=== PATIENT | female | born 1980 | race Caucasian/White ===

== ENCOUNTER 2016-10-20 10:15 | Emergency (ER) | payer MEDICAID, OTHER ==
[~2016-10-20] VITALS: Ht 157.5 cm; Wt 93.2 kg
[2016-10-20 10:15] VITALS: BP 157/95
[2016-10-20] MEDS ORDERED: IBUP-1022 PO ×2 (10:29→10:59)
[2016-10-20] MEDS ORDERED: DICY10SO PO (10:29)
[2016-10-20] MEDS ORDERED: BUSP5TA PO (10:29)
[2016-10-20] MEDS ORDERED: TRAZ50TA11 PO (10:29)
[2016-10-20] MEDS ORDERED: LIPI10TA PO (10:29)
[2016-10-20] MEDS ORDERED: LEXA1TAB PO (10:29)
[2016-10-20] MEDS ORDERED: CLEO300C2 PO (10:59)
== END 2016-10-20 11:16 | disposition home or self-care (01) ==
LOC: M ED 10:15
DX: J02.9 Acute pharyngitis, unspecified (principal); K58.9 Irritable bowel syndrome, unspecified; Z87.891 Personal history of nicotine dependence; Z79.899 Other long term (current) drug therapy

== ENCOUNTER → 2017-10-10 | Outpatient (CLI) | payer OTHER | LOC: M RAD 09:43 | DX: R06.02 Shortness of breath (principal) | CPT/HCPCS: 71046 ==

== ENCOUNTER 2018-10-02 20:03 | Emergency (ER) | payer BC, OTHER ==
[~2018-10-02] VITALS: Ht 157.5 cm; Wt 95.5 kg
[~2018-10-02 20:03] MED LIST: BUSP5TA PO; CLEO300C2 PO; DICY10SO PO; IBUP-1022 PO; LEXA1TAB PO; LIPI10TA PO; TRAZ-252 PO
[2018-10-02] MEDS ORDERED: BENZ2TAB5 (20:11)
[2018-10-02] MEDS ORDERED: DICY10CA13 (20:11)
[2018-10-02] MEDS ORDERED: LOPE2CAP (20:11)
[2018-10-02] MEDS ORDERED: ATOR1TAB19 (20:11)
[2018-10-02] MEDS ORDERED: BUSP10TA (20:11)
[2018-10-02] MEDS ORDERED: SERT25TA88 (20:11)
[2018-10-02] MEDS ORDERED: LORA-674 (20:11)
[2018-10-02] MEDS ORDERED: [UNRECOGNIZED DRUG - CODE] (20:11)
[2018-10-02] MEDS ORDERED: BACT800T5 PO (22:32)
[2018-10-02 22:36] VITALS: BP 148/80
[2018-10-02] MEDS ORDERED: BACTRIM 160MG/800MG DS TAB PO ONE (22:45)
== END 2018-10-02 22:37 | disposition home or self-care (01) ==
LOC: M ED 20:03
DX: L03.113 Cellulitis of right upper limb (principal); E78.00 Pure hypercholesterolemia, unspecified; K58.9 Irritable bowel syndrome, unspecified; E28.2 Polycystic ovarian syndrome; F41.9 Anxiety disorder, unspecified; Z79.899 Other long term (current) drug therapy

== ENCOUNTER → 2018-10-21 | Outpatient (RCR) | payer BC, OTHER ==
[~2018-10-21] MED LIST changes: +ATOR1TAB19; +BACT800T5 PO; +BENZ2TAB5; +BUSP10TA; +DICY10CA13; +LOPE2CAP; +LORA-674; +SERT25TA88; +[UNRECOGNIZED DRUG - CODE]
== END ==
LOC: M PT 09-29 09:56
PROVIDERS: ATTEND Physician Assistant Medical
DX: Z47.89 Encounter for other orthopedic aftercare (principal); M75.21 Bicipital tendinitis, right shoulder

== ENCOUNTER 2018-11-23 20:54 | Emergency (ER) | payer BC, MEDICAID, OTHER ==
[~2018-11-23] VITALS: Ht 157.5 cm; Wt 95.5 kg
[2018-11-23 20:55] VITALS: BP 166/88
[2018-11-23] MEDS ORDERED: LIDOCAINE 1% MDV 20ML VIAL SC ONE (23:15)
[2018-11-24] MEDS ORDERED: DOXY100C37 PO (00:55)
[2018-11-24] MEDS ORDERED: DOXYCYCLINE HYCLATE 100 MG TAB PO ONE (01:00)
[2018-11-24] MEDS ORDERED: PRED20TA PO (18:47)
[2018-11-24] MEDS ORDERED: ZOFR4TAB16 PO (18:48)
[2018-11-24] MEDS ORDERED: DIPH50CA PO (18:51)
== END 2018-11-24 01:11 | disposition home or self-care (01) ==
LOC: M ED 20:54
DX: L02.415 Cutaneous abscess of right lower limb (principal); B95.62 Methicillin resistant Staphylococcus aureus infection as the cause of diseases classified elsewhere

== ENCOUNTER 2018-11-24 15:46 | Emergency (ER) | payer BC ==
[~2018-11-24] VITALS: Ht 157.5 cm; Wt 95.4 kg
[~2018-11-24 15:46] MED LIST changes: +DOXY100C37 PO; +SERT25TA21; -SERT25TA88
[2018-11-24] MEDS ORDERED: NS 1,000 ML IV ONE (16:45)
[2018-11-24] MEDS ORDERED: FAMOTIDINE INJ 20MG/2ML VIAL (S0028) IVP ONE (16:45)
[2018-11-24] MEDS ORDERED: diphenhydrAMINE INJ 50MG/ML VIAL (J1200) IV ONE (16:45)
[2018-11-24] MEDS ORDERED: methylPREDNISolone INJ 125 MG/2 ML VIAL (J2930) IV ONE (16:45)
[2018-11-24] MEDS ORDERED: GI COCKTAIL 50ML BTL(HYOSCYAMINE/MAALOX/LIDOCAINE VISCOUS)(1:3:1) PO ONE (16:45)
[2018-11-24 17:12] LABS: ALBUMIN 3.3 GM/DL (3.2-5.2); ALT/SGPT 18 U/L (12-78); BILIRUBIN,DIRECT 0.3 MG/DL (0.0-0.2); BILIRUBIN,TOTAL 1.1 MG/DL (0.2-1.0); BLOOD UREA NITROGEN 21 MG/DL (7-18); CALCIUM LEVEL 8.8 MG/DL (8.5-10.1); CARBON DIOXIDE LEVEL 26 MEQ/L (21-32); CHLORIDE LEVEL 104 MEQ/L (98-107); GLOMERULAR FILTRATION RATE > 60.0 (>60); GLUCOSE, FASTING 137 MG/DL (70-100); POTASSIUM SERUM 3.9 MEQ/L (3.5-5.1); SODIUM LEVEL 138 MEQ/L (136-145); TOTAL PROTEIN 6.9 GM/DL (6.4-8.2)
[2018-11-24 17:14] LABS: BASO % 0.1 % (0.0-1.0); EOS % 0.1 % (0.0-3.0); HEMOGLOBIN 15.5 g/dl (12.0-15.5); LYMPH % 10.6 % (24.0-44.0); MEAN CORPUSCULAR HEMOGLOBIN 28.5 pg (27.0-33.0); MEAN CORPUSCULAR VOLUME 86.4 fl (80.0-96.0); MONO # 0.2 10^3/uL (0.0-0.8); MONO % 2.6 % (0.0-5.0); NEUTROPHILS # 7.7 10^3/uL (1.5-8.5); NEUTROPHILS % 86.4 % (36.0-66.0); PLATELET COUNT, AUTOMATED 312 10^3/uL (150-450); RED BLOOD COUNT 5.44 10^6/uL (4.00-5.40); WHITE BLOOD COUNT 8.9 10^3/uL (4.0-10.0)
--- NOTE | 2018-11-24 17:17 | REP ---
CHEST, TWO VIEWS: There is no evidence of acute infiltrate. No pleural effusion is seen. The heart is normal in size. The mediastinal silhouette is unremarkable. The visualized osseous structures are intact. IMPRESSION: No acute pulmonary disease. Electronically Signed by Dex Boudreaux MD 11/25/2018 09:52 A
[2018-11-24] MEDS ORDERED: ONDANSETRON 4MG/2ML VIAL (J2405) IV ONE (17:45)
[2018-11-24 18:30] VITALS: BP 117/58
[2018-11-24] MEDS ORDERED: PRED20TA PO (18:47)
[2018-11-24] MEDS ORDERED: ZOFR4TAB16 PO (18:48)
[2018-11-24] MEDS ORDERED: DIPH50CA PO (18:51)
== END 2018-11-24 19:30 | disposition home or self-care (01) ==
LOC: EDBD 15:46 → EEVIPCON 15:46 → M ED 15:46
DX: R11.10 Vomiting, unspecified (principal); L50.9 Urticaria, unspecified; R06.02 Shortness of breath; T78.40XA Allergy, unspecified, initial encounter; X58.XXXA Exposure to other specified factors, initial encounter; Y92.89 Other specified places as the place of occurrence of the external cause; F41.9 Anxiety disorder, unspecified; E78.9 Disorder of lipoprotein metabolism, unspecified; K58.9 Irritable bowel syndrome, unspecified; E28.2 Polycystic ovarian syndrome; Z79.899 Other long term (current) drug therapy; Z88.1 Allergy status to other antibiotic agents; Z88.2 Allergy status to sulfonamides; Z88.8 Allergy status to other drugs, medicaments and biological substances
CPT/HCPCS: 36415; 71046; 80048; 80076; 85025; 93041; 94760; 96361; 96374; 96375; 99285; J1200; J2405; J2930

== ENCOUNTER → 2019-06-29 | Outpatient (REF) | payer BC ==
[~2019-06-29] MED LIST changes: +DIPH50CA PO; +PRED20TA PO; +ZOFR4TAB16 PO
[2019-06-29 13:31] LABS: HEMATOCRIT 36.7 % (36.0-47.0); HEMOGLOBIN 12.1 g/dl (12.0-15.5); MEAN CORPUSCULAR HEMOGLOBIN 30.3 pg (27.0-33.0); PLATELET COUNT, AUTOMATED 238 10^3/uL (150-450); RED BLOOD COUNT 3.99 10^6/uL (4.00-5.40); WHITE BLOOD COUNT 6.1 10^3/uL (4.0-10.0)
[2019-06-29 14:58] LABS: CHLAMYDIA DNA AMPLIFICATION NEGATIVE (NEGATIVE); GC DNA AMPLIFICATION NEGATIVE (NEGATIVE)
[2019-06-30 09:39] LABS: HEPATITIS B SURFACE ANTIGEN NEGATIVE (NEGATIVE); HEPATITIS C VIRUS ABY INDEX 0.1 INDEX (<0.8); HIV 1&2 SCREEN CENTAUR NEGATIVE (NEGATIVE); RUBELLA IgG QUALITATIVE IMMUNE (IMMUNE)
== END ==
LOC: M PLALAB 10:25
PROVIDERS: ATTEND Advanced Practice Midwife
DX: O09.529 Supervision of elderly multigravida, unspecified trimester (principal); Z3A.00 Weeks of gestation of pregnancy not specified

== ENCOUNTER → 2019-08-26 | Outpatient (CLI) | payer BC ==
--- NOTE | 2019-08-27 03:05 | REP ---
Clinical: Anatomical evaluation. Comparison: None . Findings: Examination demonstrates a single live intrauterine in breech presentation. motion is identified by technologist. Placenta is noted posterior and grade zero without evidence for placenta previa or abruption. Amniotic fluid volume is normal. Cervix measures 4.0 cm in length and appears closed. No evidence for nuchal cord. Gestational age by LMP 19 weeks 2 days with ANANTH 01/22/2020 . Gestational age by current measurements 19 weeks 0 days with ANANTH 01/20/2020 . FHR equals 147 beats per minute. BPD 4.4 cm 19 weeks 1 day HC 16.5 cm 19 weeks 1 day AC 13.7 cm 19 weeks 1 day FL 3.0 cm 19 weeks 2 days HL 2.8 cm 19 weeks 1 day HC/AC ratio 1.20 Estimated weight 279 grams ( 53rd percentile). Anatomical assessment demonstrates normal structures including cranium, choroid plexus, cavum, cerebellum/posterior fossa, lungs, diaphragm, stomach, cord insertion/three-vessel cord, kidneys/bladder, spine, and extremities. Impression: Single live intrauterine in breech presentation demonstrating appropriate estimated weight. Limited evaluation of the facial features and heart/ventricular outflow tracts noted. Remainder of the anatomical assessment is complete and normal.
== END ==
LOC: M WHC 11:22
PROVIDERS: ATTEND Advanced Practice Midwife
DX: O09.522 Supervision of elderly multigravida, second trimester (principal)

== ENCOUNTER → 2019-09-23 | Outpatient (REF) | payer BC ==
[~2019-09-23] MED LIST changes: +FAMO20TA5; +FLUO20CA22; +PEPC1TAB5 PO; +PROZ20CA11 PO
[2019-09-23 13:31] LABS: HEMATOCRIT 35.1 % (36.0-47.0); HEMOGLOBIN 11.6 g/dl (12.0-15.5); MEAN CORPUSCULAR HEMOGLOBIN 30.9 pg (27.0-33.0); MEAN CORPUSCULAR VOLUME 93.6 fl (80.0-96.0); PLATELET COUNT, AUTOMATED 257 10^3/uL (150-450); RED BLOOD COUNT 3.75 10^6/uL (4.00-5.40); WHITE BLOOD COUNT 7.2 10^3/uL (4.0-10.0)
[2019-09-23 13:59] LABS: ALT/SGPT 22 U/L (12-78); BILIRUBIN,TOTAL 0.2 MG/DL (0.2-1.0); GLOMERULAR FILTRATION RATE > 60.0 (>60); LDH LACTATE DEHYDROGENASE 158 U/L (84-246); URIC ACID 3.3 MG/DL (2.6-6.0)
[2019-09-23 17:55] LABS: TOTAL PROTEIN,RANDOM URINE 20.2 MG/DL (0.0-12.0)
== END ==
LOC: M PLALAB 12:11
PROVIDERS: ATTEND Advanced Practice Midwife
DX: O09.522 Supervision of elderly multigravida, second trimester (principal); O16.2 Unspecified maternal hypertension, second trimester

== ENCOUNTER → 2019-10-04 | Outpatient (CLI) | payer BC ==
[~2019-10-04] MED LIST changes: +IBUP80TA PO; +PERCOCET PO; +PREN200C PO
--- NOTE | 2019-10-04 23:27 | REP ---
REASON: Followup anatomy. Prior exam 08/26/2019 failed to optimally visualize four-chamber heart, ventricular outflow tracts, and upper lip. Multiple ultrasonographic images of the gravid uterus show a single living intrauterine gestation in the breech presentation. Doppler interrogation of the heart shows a heart rate of 144 beats per minute. The placenta is posterior and not low lying. The subjective amniotic fluid volume is within normal limits. The cervix measures 4.8 cm in length and is closed. CHART: BPD 6.1 cm = 24 weeks 6 days HC 22.5 cm = 24 weeks 4 days AC 20.3 cm = 24 weeks 6 days FL 4.5 cm = 24 weeks 6 days The estimated weight is 740 grams, which is at the 42nd percentile for a 24-week 6-day gestational age. upper lip was seen to be within normal limits. Four-chamber heart and ventricular outflow tracts were again seen suboptimally. IMPRESSION: Single living intrauterine gestation, as described above, with an estimated gestational age of 24 weeks 3 days via composite criteria and an estimated date of delivery of 01/21/2020 by today's exam. Recommend a followup examination to visualize the anatomical structures not well seen, as described above.
== END ==
LOC: M WHC 11:46
PROVIDERS: ATTEND Advanced Practice Midwife
DX: O09.522 Supervision of elderly multigravida, second trimester (principal)

== ENCOUNTER 2019-10-08 15:07 | Emergency (ER) | payer BC, OTHER ==
[~2019-10-08] VITALS: Ht 157.5 cm; Wt 100.5 kg
[~2019-10-08 15:07] MED LIST changes: -FAMO20TA5; -FLUO20CA22; -IBUP80TA PO; -PEPC1TAB5 PO; -PERCOCET PO; -PREN200C PO; -PROZ20CA11 PO
[2019-10-08] MEDS ORDERED: FLUO20CA22 (15:23)
[2019-10-08] MEDS ORDERED: FAMO20TA5 (15:23)
[2019-10-08 15:53] LABS: HEMATOCRIT 34.3 % (36.0-47.0); HEMOGLOBIN 11.4 g/dl (12.0-15.5); MEAN CORPUSCULAR HEMOGLOBIN 30.2 pg (27.0-33.0); MEAN CORPUSCULAR HGB CONC 33.2 g/dl (32.0-36.5); PLATELET COUNT, AUTOMATED 273 10^3/uL (150-450); RED BLOOD COUNT 3.77 10^6/uL (4.00-5.40)
[2019-10-08 16:06] LABS: INR 0.96; PARTIAL THROMBOPLASTIN TIME 23.8 SECONDS (25.0-38.4); PROTHROMBIN TIME 12.5 SECONDS (11.8-14.0)
[2019-10-08 16:23] LABS: BLOOD UREA NITROGEN 5 MG/DL (7-18); CARBON DIOXIDE LEVEL 23 MEQ/L (21-32); CHLORIDE LEVEL 108 MEQ/L (98-107); CREATININE FOR GFR 0.48 MG/DL (0.55-1.30); GLOMERULAR FILTRATION RATE > 60.0 (>60); GLUCOSE, FASTING 82 MG/DL (70-100); POTASSIUM SERUM 3.7 MEQ/L (3.5-5.1); SODIUM LEVEL 141 MEQ/L (136-145)
[2019-10-08 16:24] LABS: ALBUMIN 2.4 GM/DL (3.2-5.2); ALT/SGPT 19 U/L (12-78); BILIRUBIN,TOTAL 0.2 MG/DL (0.2-1.0); CALCIUM LEVEL 8.4 MG/DL (8.5-10.1); TOTAL PROTEIN 6.2 GM/DL (6.4-8.2)
[2019-10-08 17:10] VITALS: BP 173/92
[2019-10-08] MEDS ORDERED: PROZ20CA11 PO (17:38)
[2019-10-08] MEDS ORDERED: PEPC1TAB5 PO (17:38)
--- NOTE | 2019-10-08 17:44 | REP ---
OB ULTRASOUND: Real-time sonographic evaluation of gravid uterus performed. There is a single living intrauterine gestation. Estimated gestational age is 25 weeks 3 days, EDC 01/18/2020. Cervix is closed and measures 3.6 cm in length. heart rate is 149 beats per minute. position is vertex. Placenta is posterior and fundal with no previa. Amniotic fluid appears within normal limits. Note is made of an oval well-defined heterogeneous hyperechoic area posterior to the fundal margin of the placenta, measuring 5.2 x 3.8 x 4.8 cm. There is no internal blood flow with Doppler evaluation. This is consistent with focal placental abruption and hemorrhage. Electronically Signed by Dex Boudreaux MD 10/11/2019 09:54 A
[2019-12-23] MEDS ORDERED: PREN200C PO (15:52)
== END 2019-10-08 17:12 | disposition admitted as inpatient to this hospital (09) ==
LOC: M ED 15:07
DX: O9A.212 Injury, poisoning and certain other consequences of external causes complicating pregnancy, second trimester (principal); S80.812A Abrasion, left lower leg, initial encounter; S20.319A Abrasion of unspecified front wall of thorax, initial encounter; V49.40XA Driver injured in collision with unspecified motor vehicles in traffic accident, initial encounter; Y92.9 Unspecified place or not applicable; Y93.9 Activity, unspecified; Y99.9 Unspecified external cause status; Z3A.25 25 weeks gestation of pregnancy; Z88.1 Allergy status to other antibiotic agents; Z88.8 Allergy status to other drugs, medicaments and biological substances

== ENCOUNTER 2019-10-08 17:13 | Outpatient (CLI) | payer OTHER ==
[~2019-10-08] VITALS: Ht 157.5 cm; Wt 100.4 kg
[2019-10-08] VITALS (11 sets, daily range): BP systolic 129–153; BP diastolic 68–91
[~2019-10-08 17:13] MED LIST changes: +FAMO20TA5; +FLUO20CA22
[2019-10-08] MEDS ORDERED: PEPC1TAB5 PO (17:38)
[2019-10-08] MEDS ORDERED: PROZ20CA11 PO (17:38)
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
[2019-12-23] MEDS ORDERED: PREN200C PO (15:52)
== END 2019-10-08 20:45 | disposition home or self-care (01) ==
LOC: M LDO 17:13
PROVIDERS: ATTEND Advanced Practice Midwife
DX: O99.89 Other specified diseases and conditions complicating pregnancy, childbirth and the puerperium (principal); V89.2XXA Person injured in unspecified motor-vehicle accident, traffic, initial encounter; Y99.9 Unspecified external cause status; Z3A.25 25 weeks gestation of pregnancy
CPT/HCPCS: 59025; 76815; 76820; 82570; 84156; G0378; G0463

== ENCOUNTER → 2019-10-11 | Outpatient (REF) | payer BC ==
[~2019-10-11] MED LIST changes: +IBUP80TA PO; +PEPC1TAB5 PO; +PERCOCET PO; +PREN200C PO; +PROZ20CA11 PO
[2019-10-11 17:30] LABS: HEMATOCRIT 33.9 % (36.0-47.0); HEMOGLOBIN 11.3 g/dl (12.0-15.5); MEAN CORPUSCULAR HEMOGLOBIN 30.8 pg (27.0-33.0); MEAN CORPUSCULAR HGB CONC 33.3 g/dl (32.0-36.5); MEAN CORPUSCULAR VOLUME 92.4 fl (80.0-96.0); PLATELET COUNT, AUTOMATED 296 10^3/uL (150-450); RED BLOOD COUNT 3.67 10^6/uL (4.00-5.40); WHITE BLOOD COUNT 6.8 10^3/uL (4.0-10.0)
[2019-10-11 17:54] LABS: TOTAL PROTEIN,RANDOM URINE 18.3 MG/DL (0.0-12.0)
[2019-10-11 17:55] LABS: ALT/SGPT 23 U/L (12-78); BILIRUBIN,TOTAL 0.3 MG/DL (0.2-1.0); CREATININE FOR GFR 0.52 MG/DL (0.55-1.30); GLOMERULAR FILTRATION RATE > 60.0 (>60); LDH LACTATE DEHYDROGENASE 196 U/L (84-246); URIC ACID 3.2 MG/DL (2.6-6.0)
== END ==
LOC: M PLALAB 15:43
PROVIDERS: ATTEND Advanced Practice Midwife
DX: T14.8XXA Other injury of unspecified body region, initial encounter (principal); V89.2XXA Person injured in unspecified motor-vehicle accident, traffic, initial encounter; X58.XXXA Exposure to other specified factors, initial encounter; Y92.89 Other specified places as the place of occurrence of the external cause

== ENCOUNTER → 2019-10-19 | Outpatient (REF) | payer BC ==
[2019-11-12 11:59] LABS: HEMATOCRIT 33.3 % (36.0-47.0); HEMOGLOBIN 10.7 g/dl (12.0-15.5); MEAN CORPUSCULAR HEMOGLOBIN 30.4 pg (27.0-33.0); MEAN CORPUSCULAR HGB CONC 32.1 g/dl (32.0-36.5); MEAN CORPUSCULAR VOLUME 94.6 fl (80.0-96.0); PLATELET COUNT, AUTOMATED 282 10^3/uL (150-450); RED BLOOD COUNT 3.52 10^6/uL (4.00-5.40); WHITE BLOOD COUNT 4.9 10^3/uL (4.0-10.0)
== END ==
LOC: M SFHCWAGY 17:14
PROVIDERS: ATTEND Advanced Practice Midwife
DX: O09.522 Supervision of elderly multigravida, second trimester (principal); Z3A.00 Weeks of gestation of pregnancy not specified

== ENCOUNTER → 2019-11-26 | Outpatient (CLI) | payer BC, MEDICAID ==
--- NOTE | 2019-12-21 15:28 | REP ---
LIMITED OBSTETRICAL ULTRASOUND CLINICAL: Growth evaluation. History of gestational diabetes. COMPARISON: 10/08/2019. TECHNIQUE: Transabdominal obstetrical ultrasound with color Doppler evaluation. FINDINGS: Ultrasound examination demonstrates a single live intrauterine in breech presentation. motion was identified by the technologist. Placenta noted posteriorly and grade 1 without evidence for placenta previa or abruption. Amniotic fluid volume is normal. Amniotic fluid index (SHAINA) equals 14.1 cm. Cervix measures 4.7 cm in length and appears closed. Gestational age by last menstrual period (LMP) 32 weeks 3 days. heart rate 146 beats per minute. MEASUREMENTS: BPD 82 mm 33 weeks 1 day HC 296 mm 32 weeks 5 days AC 286 mm 32 weeks 5 days FL 63 mm 32 weeks 4 days HL 55 mm 32 weeks 0 days Estimated age by current measurements 32 weeks 6 days. Estimated weight 2011 grams (45th percentile). Limited anatomical assessment demonstrates no obvious abnormality. IMPRESSION: Single live intrauterine in breech presentation demonstrating appropriate estimated weight and growth. No gross abnormalities are identified. MTDD
== END ==
LOC: M WHC 10:17
PROVIDERS: ATTEND Advanced Practice Midwife
DX: O10.919 Unspecified pre-existing hypertension complicating pregnancy, unspecified trimester (principal)

== ENCOUNTER → 2019-12-22 | Outpatient (REF) | payer BC, MEDICAID | LOC: M SFHCWAGY 17:17 | PROVIDERS: ATTEND Obstetrics & Gynecology | DX: Z34.83 Encounter for supervision of other normal pregnancy, third trimester (principal) ==

== ENCOUNTER → 2019-12-23 | Outpatient (CLI) | payer MEDICAID, OTHER | LOC: M LABSMTC 10:00 | PROVIDERS: ATTEND Anesthesiology | DX: Z11.59 Encounter for screening for other viral diseases (principal) | CPT/HCPCS: C9803; U0003 ==

== ENCOUNTER 2019-12-28 05:19 | Inpatient (IN) | payer MEDICAID, SELFPAY ==
[2019-12-28] VITALS (8 sets, daily range): BP systolic 108–133; BP diastolic 54–81
[~2019-12-28] VITALS: Ht 157.5 cm; Wt 162.2 kg
[~2019-12-28 05:19] MED LIST changes: -IBUP80TA PO; -PERCOCET PO
[2019-12-28 06:15] LABS: HEMATOCRIT 33.4 % (36.0-47.0); HEMOGLOBIN 10.9 g/dl (12.0-15.5); MEAN CORPUSCULAR HEMOGLOBIN 29.5 pg (27.0-33.0); MEAN CORPUSCULAR HGB CONC 32.6 g/dl (32.0-36.5); MEAN CORPUSCULAR VOLUME 90.5 fl (80.0-96.0); PLATELET COUNT, AUTOMATED 277 10^3/uL (150-450); RED BLOOD COUNT 3.69 10^6/uL (4.00-5.40)
[2019-12-28] MEDS ORDERED: ceFAZolin SOD 2 GM in IV 1 EA IV ONE (06:15)
[2019-12-28] MEDS ORDERED: BICITRA 30ML SOLN UDC PO ONE (06:15)
[2019-12-28] MEDS ORDERED: LR 1,000 ML IV SCH ×2 (06:15→09:30)
[2019-12-28] MEDS ORDERED: LR 1,000 ML IV ONE ×2 (06:15→16:00)
[2019-12-28] MEDS ORDERED: MORPHINE PRES-FREE INJ 10 MG/10 ML VIAL (J2274) As Ordered ONE (07:27)
[2019-12-28] MEDS ORDERED: PHENYLephrine HCL 500 MCG/5 ML (100MCG/ML) SYRINGE (J2370) As Ordered ONE (07:27)
[2019-12-28] MEDS ORDERED: ePHEDrine SULFATE 25 MG/5 ML(5MG/ML) SYRINGE As Ordered ONE (07:27)
[2019-12-28] MEDS ORDERED: OXYTOCIN 30 UNITS IN 0.9% NaCl 500ML IV BAG (J2590) As Ordered ONE ×2 (07:28→09:24)
[2019-12-28] MEDS ORDERED: diphenhydrAMINE 50MG/ML VIAL (J1200) IV PRN (07:50)
[2019-12-28] MEDS ORDERED: METOCLOPRAMIDE INJ 10MG/2ML VIAL (J2765 PER 1) IV PRN ×2 (07:50→09:30)
[2019-12-28] MEDS ORDERED: ONDANSETRON 4MG/2ML VIAL IV PRN ×3 (07:50→09:30)
[2019-12-28] MEDS ORDERED: NALBUPHINE HCL 10 MG/ML AMP (J2300) IV PRN (07:50)
[2019-12-28] MEDS ORDERED: NALOXONE INJ 0.4MG/1ML VIAL (J2310 PER 1MG) IV PRN ×2 (07:50)
--- NOTE | 2019-12-28 07:52 | ROOPDOC ---
[facility] Report Of Operation Report of Operation DATE OF PROCEDURE: 12/28/19 SURGEON: Kajal Mendoza M.D. PROP SAWYER: Sofy Odonnell CNM PROCEDURE: Primary section with bilateral [place] tubal ligation PREOPERATIVE DIAGNOSIS: 1. History of 4th Degree laceration 2. Intrauterine at 39 weeks 3. Satisfied parity with undesired fertility POSTOPERATIVE DIAGNOSIS: 1. History of 4th Degree laceration 2. Intrauterine at 39 weeks 3. Satisfied parity with undesired fertility ANESTHESIA: Spinal ESTIMATED BLOOD LOSS: 700 mL URINE OUTPUT: 50 mL INTRAVENOUS FLUIDS: 1600 mL of lactated Ringer's solution PREOPERATIVE ANTIBIOTICS:. 2 g of Ancef OPERATIVE FINDINGS: Liveborn female , Apgars 9 and 9. Weight was 3220 g or 7 lbs. 2 oz. SPECIMENS:Bilateral segments of fallopian tubes DESCRIPTION OF PROCEDURE: After informed consent was obtained and written consent was reviewed. The patient was brought to the operating room where spinal anesthesia was placed. She was then placed in the supine position with a left lateral tilt. Roldan catheter was placed and to gravity. Patient was then prepped and draped in the normal sterile fashion. A timeout operating room was performed identifying the patient, procedure be performed as well as drug allergies. Anesthesia was tested and deemed to be adequate. Pfannenstiel skin incision was made and this was carried down to the underlying rectus fascia. The fascia was then scored and this incision was extended bilaterally. The fascia was then dissected off the underlying rectus muscle superiorly and inferiorly. The rectus muscles were then in the midline. The peritoneum is then entered. Vesicouterine peritoneum was then tented and excised and a bladder flap was cre ated. Mobius retractor was then placed. Next, a curvilinear incision was then made in the lower uterine segment. Amniotomy was performed, productive, clear fluid. The head was brought to the level of the incision atraumatically and delivered along the shoulders and corpus. The cord was clamped x2. The infant was brought over to the warmer with a good cry. Placenta was drained and delivered grossly intact. The uterus was cleared of all clots and debris and the uterine incision was then closed using 0 Vicryl in a running locking fashion followed. Attention was then turned to a bilateral [place] tubal ligation. A window was created in the right mesosalpinx. This area was doubly ligated with 3-0 chromic and was excised with good hemostasis noted. In a similar fashion, the left fallopian tube was placed on traction. A window was created in the mesosalpinx. This area was doubly ligated with 3-0 chromic and was excised, and hemostasis was noted. The abdomen suctioned. Surgical sites reinspected and noted be hemostatic. The retractor was then removed. The anterior peritoneum was then reapproximated with 3-0 Vicryl. The rectus muscles were reapproximated 3-0 Vicryl. The fascia was then closed using 0 Vicryl in a running nonlocking fashion. The subcutaneous tissues was then irrigated and suctioned. Subcutaneous tissue was reapproximated using 3-0 Vicryl. Several subdermal stitch is placed using 3-0 Vicryl and the skin was closed with 4-0 Monocryl and subcuticular fashion. This incision was then cleaned and dried and was dressed. The patient was then taken to recovery in stable condition. All counts were correct. The couple has decided to name the Vignesh. My executive personal assistant Sofy Odonnell played in an essential role during the operation. She assisted with tissue identification retraction, delivery of the , as well as wound closure. KAJAL MENDOZA MD. Dec 28, 2019 07:52
[2019-12-28] MEDS ORDERED: ONDANSETRON 4MG/2ML VIAL As Ordered ONE (08:13)
[2019-12-28] MEDS ORDERED: KETOROLAC 60MG 2ML VIAL As Ordered ONE (08:13)
[2019-12-28] MEDS ORDERED: OXYTOCIN DRIP 30 UNITS in IV 1 EA IV SCH (09:03)
[2019-12-28] MEDS ORDERED: PERCOCET 5MG/325MG TAB PO PRN ×3 (09:15→09:30)
[2019-12-28] MEDS ORDERED: MOM 30ML SUSPENSION UDC PO PRN (09:15)
[2019-12-28] MEDS ORDERED: RHOGAM 300 MCG (1500 IU) INJ (J2790) IM SCH (09:15)
[2019-12-28] MEDS ORDERED: MEASLES,MUMPS,RUBELLA VACCINE INJ (MMR-II) (90707) SC SCH (09:15)
[2019-12-28] MEDS ORDERED: fentaNYL 100 MCG/2 ML INJECTION (J3010) IV PRN (09:30)
[2019-12-28] MEDS ORDERED: MEPERIDINE INJ 25 MG/ML VIAL (J2175) IV PRN (09:30)
[2019-12-28] MEDS: LR 1,000 ML IV SCH ×2 (11:10→17:24)
[2019-12-28] MEDS: KETOROLAC 30 MG/ML 1ML VIAL IV SCH ×2 (15:30→20:52)
[2019-12-28] MEDS: DOCUSATE SODIUM 100 MG CAP PO SCH (20:52)
[2019-12-29] MEDS: LR 1,000 ML IV SCH (00:53)
[2019-12-29 02:00] VITALS: BP 113/64
[2019-12-29] MEDS: KETOROLAC 30 MG/ML 1ML VIAL IV SCH (02:59)
[2019-12-29 06:15] VITALS: BP 116/56
[2019-12-29 07:48] LABS: HEMOGLOBIN 7.2 g/dl (12.0-15.5); MEAN CORPUSCULAR HEMOGLOBIN 28.9 pg (27.0-33.0); MEAN CORPUSCULAR HGB CONC 31.3 g/dl (32.0-36.5); MEAN CORPUSCULAR VOLUME 92.4 fl (80.0-96.0); PLATELET COUNT, AUTOMATED 189 10^3/uL (150-450); RED BLOOD COUNT 2.49 10^6/uL (4.00-5.40); WHITE BLOOD COUNT 6.6 10^3/uL (4.0-10.0)
[2019-12-29] MEDS: PRENATAL VITAMINS CHEWABLE TABLET PO SCH (08:44)
[2019-12-29] MEDS: FLUoxetine 20 MG CAP PO SCH (08:44)
[2019-12-29] MEDS: DOCUSATE SODIUM 100 MG CAP PO SCH ×2 (08:44→19:36)
[2019-12-29] MEDS ORDERED: INFLUENZA QUADRIVALENT PF VACCINE 0.5ML SYRINGE IM ONE (09:00)
[2019-12-29] MEDS ORDERED: BOOSTRIX/ADACEL VACCINE (DIPHTH/PERTUSS/ACELL/TETANUS) 0.5ML SYR IM ONE (09:00)
[2019-12-29 10:00] VITALS: BP 107/61
[2019-12-29] MEDS: IBUPROFEN 800 MG TAB PO SCH ×2 (11:16→19:00)
--- NOTE | 2019-12-29 11:39 | IPNPDOC ---
Progress Note Date of Service: Dec 29, 2019 Day#: 1 Progress Note SUBJECT: Doing well without complaints. Ambulating and pain is well-controlled. Reports minimal lochia. OBJECTIVE: VITAL SIGNS: Within normal limits, afebrile. Alert and oriented times three. Abdomen: Fundus firm at U-2. Soft, NTTP. Incision: dressed Ext: neg calf tenderness. ASSESSMENT: /postoperative day #1 status post delivery. Recovering in stable condition. PLAN: 1. Continue routine /postoperative care 2. Discharge plans for tomorrow VS, I&O, 24H, Fishbone Vital Signs/I&O Vital Signs Date Time Temp Pulse Resp B/P (MAP) Pulse Ox O2 Delivery O2 Flow Rate FiO2 12/29/19 06:15 98.2 76 16 116/56 (76) 97 Room Air I&O- Last 24 Hours up to 6 AM 12/29/19 06:00 Intake Total 4574 ml Output Total 1925 ml Balance 2649 ml Laboratory Data 24H LABS Laboratory Tests 2 12/29/19 07:14: Nucleated Red Blood Cells % (auto) 0.0 CBC/BMP Laboratory Tests 12/29/19 07:14 MARY TREVIZO MD. Dec 29, 2019 11:39
[2019-12-29] MEDS ORDERED: PERCOCET PO (11:41)
[2019-12-29] MEDS ORDERED: IBUP80TA PO (11:41)
[2019-12-29 14:00] VITALS: BP_SYST 116; BP_SYST 124; BP_DIAS 59; BP_DIAS 68
[2019-12-29 18:00] VITALS: BP 133/65
[2019-12-29 22:22] VITALS: BP 136/67
[2019-12-30 02:08] VITALS: BP 131/74
[2019-12-30] MEDS: IBUPROFEN 800 MG TAB PO SCH ×3 (03:15→18:32)
[2019-12-30 06:00] VITALS: BP 118/81
[2019-12-30] MEDS ORDERED: BOOSTRIX/ADACEL VACCINE (DIPHTH/PERTUSS/ACELL/TETANUS) 0.5ML SYR IM ONE (09:00)
[2019-12-30] MEDS ORDERED: INFLUENZA QUADRIVALENT PF VACCINE 0.5ML SYRINGE IM ONE (09:00)
[2019-12-30] MEDS: DOCUSATE SODIUM 100 MG CAP PO SCH ×2 (10:12→20:49)
[2019-12-30] MEDS: PRENATAL VITAMINS CHEWABLE TABLET PO SCH (10:12)
[2019-12-30] MEDS: FLUoxetine 20 MG CAP PO SCH (10:12)
[2019-12-30 17:43] VITALS: BP 150/77
[2019-12-31] MEDS: IBUPROFEN 800 MG TAB PO SCH ×2 (02:37→11:57)
[2019-12-31 06:15] VITALS: BP 141/81
[2019-12-31] MEDS: FLUoxetine 20 MG CAP PO SCH (09:06)
[2019-12-31] MEDS: DOCUSATE SODIUM 100 MG CAP PO SCH (09:06)
[2019-12-31] MEDS: PRENATAL VITAMINS CHEWABLE TABLET PO SCH (09:06)
--- NOTE | 2019-12-31 09:42 | DS.PDOC ---
Discharge Summary General Date of Admission Dec 28, 2019 at 05:19 Date of Discharge 12/31/19 Discharge Summary DATE OF ADMISSION: 12/28/2019 DATE OF DISCHARGE: 12/31/2019 ADMISSION DIAGNOSIS:. Term gestation. Satisfied parity. History of fourth degree laceration DISCHARGE DIAGNOSIS: Status post repeat low transverse section and bilateral tubal ligation DISCHARGE SUMMARY: The patient was admitted at 39 weeks gestation with a history of fourth degree laceration and satisfied parity. She was admitted for a scheduled repeat low transverse section and a tubal ligation. The section delivery was uncomplicated. Her postoperative course was uncomplicated as well. On postoperative day #2, she was meeting all discharge criteria. PHYSICAL EXAMINATION ON DATE OF DISCHARGE: Normotensive. Normal heart rate. Afebrile. HEART: Regular rate and rhythm. No murmurs, gallops, or rubs. LUNGS: Clear to auscultation bilaterally. ABDOMEN: Soft, nontender, nondistended. Incision bandage clean and dry. EXTREMITIES: Nonedematous, nontender. She was meeting all discharge criteria on postoperative day #2. We reviewed routine fever, infectious, pain, and bleeding precautions. She is to followup in 2 weeks for incision check. Her postoperative medications are Percocet, Motrin, and Colace. Vital Signs/I&Os Vital Signs Date Time Temp Pulse Resp B/P (MAP) Pulse Ox O2 Delivery O2 Flow Rate FiO2 12/31/19 06:15 97.2 74 18 141/81 (101) 99 Room Air Discharge Medications Scheduled Docosahexanoic Acid ( Dha) 200 Mg Capsule, 200 MG PO DAILY, (Reported) Famotidine (Pepcid) 20 Mg Tablet, 1 TAB PO BID, (Reported) Fluoxetine HCl (Prozac) 20 Mg Capsule, 20 MG PO DAILY, (Reported) Ibuprofen (Ibuprofen) 800 Mg Tablet, 800 MG PO Q8H Scheduled PRN Oxycodone/Acetaminophen (Oxycodone-Acetaminophen 5-325) 1 Each Tablet, 1-2 TAB PO Q6H PRN for SEVERE PAIN (PS 8-10) Allergies Coded Allergies: doxycycline (Verified Allergy, Intermediate, hives, orbital edema, 12/21/19) sulfamethoxazole (Verified Allergy, Intermediate, hives, 12/21/19) trimethoprim (Verified Allergy, Intermediate, hives, 12/21/19) mupirocin (Verified Allergy, Unknown, 12/21/19) SUBHA CONNELLY DO Dec 31, 2019 09:42
== END 2019-12-31 12:05 | disposition home or self-care (01) | DRG 540 ==
LOC: M LDI 05:19 → M OBS 10:42
PROVIDERS: ADMIT Obstetrics & Gynecology; ATTEND Obstetrics & Gynecology
PROC: 0UB70ZZ Excision of Bilateral Fallopian Tubes, Open Approach (ICD-10-PCS; 2019-12-28)
PROC: 10D00Z1 Extraction of Products of Conception, Low, Open Approach (ICD-10-PCS; principal; 2019-12-28 07:30)
DX: O34.211 Maternal care for low transverse scar from previous cesarean delivery (principal); Z88.2 Allergy status to sulfonamides; Z37.0 Single live birth; Z3A.39 39 weeks gestation of pregnancy; Z30.2 Encounter for sterilization; Z88.8 Allergy status to other drugs, medicaments and biological substances

== ENCOUNTER → 2020-12-22 | Outpatient (CLI) | payer OTHER ==
[~2020-12-22] MED LIST changes: -DOXY100C37 PO; +DOXY1CAP62 PO; +IBUP80TA PO; +PERCOCET PO
--- NOTE | 2020-12-22 14:45 | REP ---
INDICATION: ENCTR SCREEN MAMMO FOR MALIGNANT NEOPLASM OF BREAST. COMPARISON: None TECHNIQUE: Digital screening mammography was carried out bilaterally in the CC and MLO projections using both 2D and 3D modalities. Today's examination is initial screening examination. By history, the patient has no complaints of a palpable breast abnormality or other significant breast complaints. FINDINGS: The breasts are symmetric in size and shape. Scattered dense heterogenous fibroglandular elements are seen bilaterally. In the upper outer quadrant of the right breast there is a nodular density. In the left breast at the 6 o'clock position there is a grouping of calcifications. Other benign calcifications are seen bilaterally. There is no skin thickening or nipple retraction. The Vol[place] volumetric breast density pattern is b. IMPRESSION: BIRADS/ACR category 0 bilateral mammogram. Right breast [place] density as described above for which diagnostic digital DBT spot compression views are recommended in the CC and MLO projections along with diagnostic ultrasonography if necessary. Left breast calcifications as described above for which diagnostic digital magnified spot compression views are recommended in the CC and true lateral projections. This patient's Tyrer-Cuzick lifetime breast cancer risk assessment score is 14.2%. This mammogram was interpreted with the aid of an FDA-approved computer-aided detection system. The patient states she had a clinical breast exam in over a year. The patient letter being requested is M0. RECOMMENDATION: As above <Electronically signed by Moiz Watts > 12/22/20 1332
== END ==
LOC: M WHC 13:21
PROVIDERS: ATTEND Pediatrics
DX: Z12.31 Encounter for screening mammogram for malignant neoplasm of breast (principal)

== ENCOUNTER → 2021-01-16 | Outpatient (CLI) | payer OTHER ==
[~2021-01-16] MED LIST changes: +DOXY-443 PO; -DOXY1CAP62 PO
--- NOTE | 2021-01-17 08:16 | REP ---
INDICATION: BILATERAL ADD VIEWS. COMPARISON: Screening mammogram, 12/22/2020 TECHNIQUE: Focal compression magnification of both breasts in the CC and MLO orientations. Targeted ultrasound evaluation of the right breast. FINDINGS: The [place] volumetric breast density pattern is b, there are scattered areas of fibroglandular density. Diagnostic mammogram of the left breast demonstrates a group of calcifications in the anterior 3rd of the left breast are benign dystrophic calcifications associated with the nodule, consistent with a small degenerating fibroadenoma or oil cyst. Diagnostic mammogram of the right breast demonstrates an oval, circumscribed, isodense mass in the middle 3rd of the right breast, approximately 11 cm from the nipple, measuring 11 mm in diameter. Right breast ultrasound: 11 o'clock, 11 cm from the nipple, 12 x 10 x 5 mm, complicated cyst. IMPRESSION: Circumscribed mass in the right breast is a probably benign complicated cyst. BIRADS/ACR category 3: Probably benign. This mammogram was interpreted with the aid of an FDA-approved computer-aided detection system. The patient letter being requested is M3. RECOMMENDATION: Six-month follow-up ultrasound evaluation of the right breast. <Electronically signed by Chadd Ybarra > 01/17/21 [id number]
--- NOTE | 2021-01-17 08:20 | REP ---
INDICATION: BILATERAL ADD VIEWS. Right breast ultrasound COMPARISON: Screening mammogram, 12/22/2020 TECHNIQUE: Focal compression magnification of both breasts in the CC and MLO orientations. Targeted ultrasound evaluation of the right breast. FINDINGS: The [place] volumetric breast density pattern is b, there are scattered areas of fibroglandular density. Diagnostic mammogram of the left breast demonstrates a group of calcifications in the anterior 3rd of the left breast are benign dystrophic calcifications associated with the nodule, consistent with a small degenerating fibroadenoma or oil cyst. Diagnostic mammogram of the right breast demonstrates an oval, circumscribed, isodense mass in the middle 3rd of the right breast, approximately 11 cm from the nipple, measuring 11 mm in diameter. Right breast ultrasound: 11 o'clock, 11 cm from the nipple, 12 x 10 x 5 mm, complicated cyst. IMPRESSION: Circumscribed mass in the right breast is a probably benign complicated cyst. BIRADS/ACR category 3: Probably benign. This mammogram was interpreted with the aid of an FDA-approved computer-aided detection system. The patient letter being requested is M3 RECOMMENDATION: Six-month follow-up ultrasound evaluation of the right breast. <Electronically signed by Chadd Ybarra > 01/17/21 [id number]
== END ==
LOC: M WHC 07:46
PROVIDERS: ATTEND Pediatrics
DX: R92.8 Other abnormal and inconclusive findings on diagnostic imaging of breast (principal); N63.41 Unspecified lump in right breast, subareolar; N63.42 Unspecified lump in left breast, subareolar

== ENCOUNTER → 2021-04-30 | Outpatient (CLI) | payer OTHER ==
[~2021-04-30] MED LIST changes: +AMIT25TA17 PO; +LORA-674 PO; +OMEP40CA5 PO; +PREV30TA3 PO
== END ==
LOC: M LABSMTC 09:49
PROVIDERS: ATTEND Anesthesiology
DX: Z01.818 Encounter for other preprocedural examination (principal); Z11.52 Encounter for screening for COVID-19

== ENCOUNTER 2021-05-04 08:53 | Day surgery (SDC) | payer OTHER ==
[~2021-05-04] VITALS: Ht 157.5 cm; Wt 102.5 kg
[~2021-05-04 08:53] MED LIST changes: +NS 1,000 ML IV ONE
[2021-05-04] MEDS ORDERED: LIDOCAINE 2% 100MG/5ML SDV (FOR ANES.) As Ordered ONE (09:32)
[2021-05-04] MEDS ORDERED: fentaNYL 100 MCG/2 ML INJECTION As Ordered ONE (09:32)
[2021-05-04] MEDS ORDERED: propofoL 200 MG/20 ML VIAL As Ordered ONE (09:32)
[2021-05-04 10:30] VITALS: BP 152/94
== END 2021-05-04 14:15 | disposition home or self-care (01) ==
LOC: M OPP 08:53
PROVIDERS: ATTEND Internal Medicine Gastroenterology
DX: K22.2 Esophageal obstruction (principal); K29.70 Gastritis, unspecified, without bleeding; R13.10 Dysphagia, unspecified; R12 Heartburn; Z79.899 Other long term (current) drug therapy; Z88.1 Allergy status to other antibiotic agents; Z87.891 Personal history of nicotine dependence
CPT/HCPCS: 43239; 43249; 88305; J3010

== ENCOUNTER → 2021-07-30 | Outpatient (CLI) | payer OTHER ==
[~2021-07-30] MED LIST changes: -NS 1,000 ML IV ONE
== END ==
LOC: M WHC 09:32
PROVIDERS: ATTEND Pediatrics
DX: R92.8 Other abnormal and inconclusive findings on diagnostic imaging of breast (principal)

== ENCOUNTER → 2022-01-09 | Outpatient (REF) | payer OTHER, MEDICAID ==
[2022-01-09 18:00] LABS: BASO % 0.2 % (0.0-1.0); EOS # 0.2 10^3/uL (0.0-0.5); EOS % 3.1 % (0.0-3.0); HEMATOCRIT 35.3 % (36.0-47.0); HEMOGLOBIN 10.9 g/dl (12.0-15.5); LYMPH # 1.6 10^3/uL (1.5-5.0); LYMPH % 30.1 % (24.0-44.0); MEAN CORPUSCULAR HEMOGLOBIN 24.8 pg (27.0-33.0); MEAN CORPUSCULAR HGB CONC 30.9 g/dl (32.0-36.5); MEAN CORPUSCULAR VOLUME 80.4 fl (80.0-96.0); MONO # 0.4 10^3/uL (0.0-0.8); PLATELET COUNT, AUTOMATED 345 10^3/uL (150-450); RED BLOOD COUNT 4.39 10^6/uL (4.00-5.40); WHITE BLOOD COUNT 5.2 10^3/uL (4.0-10.0)
[2022-01-09 18:10] LABS: HEMOGLOBIN A1c 5.9 %
[2022-01-09 18:39] LABS: ALBUMIN 3.4 GM/DL (3.2-5.2); ALT/SGPT 17 U/L (12-78); BILIRUBIN,TOTAL 0.5 MG/DL (0.2-1.0); BLOOD UREA NITROGEN 11 MG/DL (7-18); CALCIUM LEVEL 8.6 MG/DL (8.5-10.1); CARBON DIOXIDE LEVEL 24 MEQ/L (21-32); CHLORIDE LEVEL 106 MEQ/L (98-107); CHOLESTEROL LEVEL 193 MG/DL (<200); CHOLESTEROL RISK RATIO 4.195 (<5); CREATININE FOR GFR 0.72 MG/DL (0.55-1.30); GLOMERULAR FILTRATION RATE > 60.0 (>58); GLUCOSE, FASTING 85 MG/DL (70-100); HDL CHOLESTEROL 46 MG/DL (>40); LDL CHOLESTEROL 111 MG/DL (<100); NON-HDL-C 147 MG/DL; POTASSIUM SERUM 4.4 MEQ/L (3.5-5.1); SODIUM LEVEL 137 MEQ/L (136-145); TOTAL PROTEIN 7.2 GM/DL (6.4-8.2); TRIGLYCERIDES LEVEL 179 MG/DL (<150)
== END ==
LOC: M LAB REF 16:18
PROVIDERS: ATTEND Pediatrics
DX: Z51.81 Encounter for therapeutic drug level monitoring (principal); E78.5 Hyperlipidemia, unspecified; E78.2 Mixed hyperlipidemia

== ENCOUNTER → 2022-02-20 | Outpatient (CLI) | payer OTHER ==
[~2022-02-20] MED LIST changes: +E-Z-GAS II EFFERVESCENT PACKET (SODIUM BICARB./CITRIC ACID/SIMETHICONE) As Ordered ONE; +E-Z-HD 98% w/w 340GM SUSP BTL As Ordered ONE; +E-Z-PAQUE 96% w/w SUSP 176GM BTL As Ordered ONE
== END ==
LOC: M RAD 08:17
PROVIDERS: ATTEND Internal Medicine Gastroenterology
DX: R13.10 Dysphagia, unspecified (principal)

== ENCOUNTER → 2022-02-25 | Outpatient (CLI) | payer MEDICAID, OTHER ==
[~2022-02-25] MED LIST changes: +ARIP1TAB6 PO; +ATOR40TA75 PO; -E-Z-GAS II EFFERVESCENT PACKET (SODIUM BICARB./CITRIC ACID/SIMETHICONE) As Ordered ONE; -E-Z-HD 98% w/w 340GM SUSP BTL As Ordered ONE; -E-Z-PAQUE 96% w/w SUSP 176GM BTL As Ordered ONE; +LISI10TA22 PO; +PANT40TA29 PO; +SUCR1TAB56 PO
== END ==
LOC: M LABSMTC 10:50
PROVIDERS: ATTEND Anesthesiology
DX: Z01.812 Encounter for preprocedural laboratory examination (principal); Z11.52 Encounter for screening for COVID-19

== ENCOUNTER 2022-03-01 09:42 | Day surgery (SDC) | payer OTHER ==
[~2022-03-01] VITALS: Ht 157.5 cm; Wt 112.9 kg
[~2022-03-01 09:42] MED LIST changes: +NS 1,000 ML IV ONE
[2022-03-01] MEDS ORDERED: propofoL 200 MG/20 ML VIAL As Ordered ONE (10:22)
[2022-03-01] MEDS ORDERED: fentaNYL 100 MCG/2 ML INJECTION As Ordered ONE (10:51)
[2022-03-01 12:00] VITALS: BP 184/98
== END 2022-03-01 15:39 | disposition home or self-care (01) ==
LOC: M OPP 09:42
PROVIDERS: ATTEND Internal Medicine Gastroenterology
DX: K22.4 Dyskinesia of esophagus (principal); K22.89 Other specified disease of esophagus; Z79.1 Long term (current) use of non-steroidal anti-inflammatories (NSAID); Z79.899 Other long term (current) drug therapy; Z88.1 Allergy status to other antibiotic agents; Z87.19 Personal history of other diseases of the digestive system; I10 Essential (primary) hypertension; E78.00 Pure hypercholesterolemia, unspecified; D64.9 Anemia, unspecified; G43.909 Migraine, unspecified, not intractable, without status migrainosus; F32.9 Major depressive disorder, single episode, unspecified; F41.9 Anxiety disorder, unspecified; K58.9 Irritable bowel syndrome, unspecified; Z92.21 Personal history of antineoplastic chemotherapy; Z92.3 Personal history of irradiation
CPT/HCPCS: 43239; 43249; 88305; J3010

== ENCOUNTER → 2022-03-21 | Outpatient (REF) | payer OTHER ==
[~2022-03-21] MED LIST changes: -NS 1,000 ML IV ONE
[2022-03-21 17:11] LABS: PERCENT SATURATION 5.2 % (13.2-45.0)
[2022-03-21 17:13] LABS: FERRITIN 3.9 NG/ML (7.3-270.7)
[2022-03-21 17:48] LABS: EOS # 0.1 10^3/uL (0.0-0.5); EOS % 1.9 % (0.0-3.0); HEMATOCRIT 36.1 % (36.0-47.0); HEMOGLOBIN 10.7 g/dl (12.0-15.5); LYMPH # 1.9 10^3/uL (1.5-5.0); LYMPH % 35.7 % (24.0-44.0); MEAN CORPUSCULAR HEMOGLOBIN 23.2 pg (27.0-33.0); MEAN CORPUSCULAR HGB CONC 29.6 g/dl (32.0-36.5); MEAN CORPUSCULAR VOLUME 78.1 fl (80.0-96.0); MONO # 0.4 10^3/uL (0.0-0.8); MONO % 7.7 % (2.0-8.0); NEUTROPHILS # 2.8 10^3/uL (1.5-8.5); NEUTROPHILS % 54.5 % (36.0-66.0); PLATELET COUNT, AUTOMATED 334 10^3/uL (150-450); RED BLOOD COUNT 4.62 10^6/uL (4.00-5.40); WHITE BLOOD COUNT 5.2 10^3/uL (4.0-10.0)
== END ==
LOC: M LAB REF 16:18
PROVIDERS: ATTEND Pediatrics
DX: D64.9 Anemia, unspecified (principal)

== ENCOUNTER → 2022-04-25 | Outpatient (CLI) | payer OTHER | LOC: M WHC 15:51 | PROVIDERS: ATTEND Pediatrics | DX: Z12.31 Encounter for screening mammogram for malignant neoplasm of breast (principal) ==

== ENCOUNTER → 2022-07-10 | Outpatient (REF) | payer OTHER ==
[~2022-07-10] MED LIST changes: +BENZ2TAB48; -BENZ2TAB5
[2022-07-10 16:37] LABS: BASO % 0.2 % (0.0-1.0); EOS # 0.1 10^3/uL (0.0-0.5); EOS % 1.9 % (0.0-3.0); HEMOGLOBIN 13.1 g/dl (12.0-15.5); LYMPH # 1.8 10^3/uL (1.5-5.0); LYMPH % 34.8 % (24.0-44.0); MEAN CORPUSCULAR HEMOGLOBIN 27.3 pg (27.0-33.0); MEAN CORPUSCULAR HGB CONC 31.2 g/dl (32.0-36.5); MEAN CORPUSCULAR VOLUME 87.5 fl (80.0-96.0); MONO # 0.7 10^3/uL (0.0-0.8); MONO % 13.4 % (2.0-8.0); NEUTROPHILS # 2.6 10^3/uL (1.5-8.5); NEUTROPHILS % 49.5 % (36.0-66.0); PLATELET COUNT, AUTOMATED 299 10^3/uL (150-450); WHITE BLOOD COUNT 5.2 10^3/uL (4.0-10.0)
[2022-07-10 16:55] LABS: INR 0.9; PARTIAL THROMBOPLASTIN TIME 24.6 SECONDS (24.8-34.2); PROTHROMBIN TIME 12.3 SECONDS (12.5-14.5)
[2022-07-10 17:04] LABS: CHOLESTEROL RISK RATIO 4.73 (<5); HDL CHOLESTEROL 41.2 MG/DL (>40); LDL CHOLESTEROL 115.6 MG/DL (<100); NON-HDL-C 153.8 MG/DL; PERCENT SATURATION 13.2 % (13.2-45.0)
[2022-07-10 17:05] LABS: FERRITIN 18.2 NG/ML (7.3-270.7)
[2022-07-10 17:30] LABS: HEMOGLOBIN A1c 5.4 % (4.0-6.0)
== END ==
LOC: M LAB REF 16:11
PROVIDERS: ATTEND Pediatrics
DX: R73.03 Prediabetes (principal); E78.5 Hyperlipidemia, unspecified; E78.2 Mixed hyperlipidemia; D64.9 Anemia, unspecified; R58 Hemorrhage, not elsewhere classified

== ENCOUNTER → 2023-04-08 | Outpatient (CLI) | payer OTHER ==
[~2023-04-08] MED LIST changes: -AMIT25TA17 PO; +AMIT25TA19 PO; +DICY-61; -DICY10CA13; +LORA-1041; +LORA-1041 PO; -LORA-674; -LORA-674 PO
== END ==
LOC: M SLEEP HO 10:20
PROVIDERS: ATTEND Nurse Practitioner Family
DX: R40.0 Somnolence (principal)

== ENCOUNTER → 2023-04-16 | Outpatient (REF) | payer OTHER ==
[2023-04-17 13:38] LABS: CREATININE, URINE 242.9 MG/DL; MAU/CREAT RATIO 1.6 MCG/MG (0.0-30.0)
== END ==
LOC: M LAB REF 10:37
PROVIDERS: ATTEND Pediatrics
DX: I10 Essential (primary) hypertension (principal)

== ENCOUNTER → 2023-05-15 | Outpatient (CLI) | payer OTHER | LOC: M WHC 08:57 | PROVIDERS: ATTEND Pediatrics | DX: Z12.31 Encounter for screening mammogram for malignant neoplasm of breast (principal) ==

== ENCOUNTER → 2023-07-30 | Outpatient (REF) | payer OTHER, MEDICAID ==
[~2023-07-30] MED LIST changes: +DOXY-323 PO; -DOXY-443 PO
[2023-07-30 19:17] LABS: EOS # 0.1 10^3/uL (0.0-0.5); EOS % 1.7 % (0.0-3.0); HEMATOCRIT 36.4 % (36.0-47.0); HEMOGLOBIN 11.2 g/dl (12.0-15.5); LYMPH # 1.9 10^3/uL (1.5-5.0); LYMPH % 40.6 % (24.0-44.0); MEAN CORPUSCULAR HEMOGLOBIN 24.9 pg (27.0-33.0); MEAN CORPUSCULAR HGB CONC 30.8 g/dl (32.0-36.5); MEAN CORPUSCULAR VOLUME 81.1 fl (80.0-96.0); MONO # 0.4 10^3/uL (0.0-0.8); MONO % 8.8 % (2.0-8.0); NEUTROPHILS # 2.3 10^3/uL (1.5-8.5); NEUTROPHILS % 48.9 % (36.0-66.0); PLATELET COUNT, AUTOMATED 341 10^3/uL (150-450); RED BLOOD COUNT 4.49 10^6/uL (4.00-5.40); WHITE BLOOD COUNT 4.7 10^3/uL (4.0-10.0)
[2023-07-30 19:32] LABS: ALBUMIN 3.3 G/DL (3.2-5.2); ALKALINE PHOSPHATASE 161 U/L (46-116); ALT/SGPT 27 U/L (7.0-40); AST/SGOT 20 U/L (<34); BILIRUBIN,TOTAL 0.3 MG/DL (0.3-1.2); BLOOD UREA NITROGEN 10 MG/DL (9-23); CARBON DIOXIDE LEVEL 27 MMOL/L (20-31); CHLORIDE LEVEL 105 MMOL/L (98-107); GLOMERULAR FILTRATION RATE > 60.0 (>58); GLUCOSE, FASTING 83 MG/DL (60-100); POTASSIUM SERUM 4.2 MMOL/L (3.5-5.1); SODIUM LEVEL 139 MMOL/L (136-145); TOTAL PROTEIN 7.1 G/DL (5.7-8.2)
[2023-07-30 19:34] LABS: THYROID STIMULATING HORMONE 1.434 uIU/ML (0.55-4.78)
[2023-07-30 20:00] LABS: HEMOGLOBIN A1c 5.4 % (4.0-6.0)
== END ==
LOC: M LAB REF 16:26
PROVIDERS: ATTEND Pediatrics
DX: Z76.89 Persons encountering health services in other specified circumstances (principal)

== ENCOUNTER → 2024-03-09 | Outpatient (REF) | payer OTHER, MEDICAID ==
[~2024-03-09] MED LIST changes: -DOXY-323 PO; +DOXY-441 PO; +FLUO-365; -FLUO20CA22
[2024-03-09 18:17] LABS: EOS # 0.1 10^3/uL (0.0-0.5); EOS % 1.4 % (0.0-3.0); HEMATOCRIT 34.4 % (36.0-47.0); HEMOGLOBIN 10.2 g/dl (12.0-15.5); LYMPH # 1.4 10^3/uL (1.5-5.0); LYMPH % 27.8 % (24.0-44.0); MEAN CORPUSCULAR HEMOGLOBIN 22.5 pg (27.0-33.0); MEAN CORPUSCULAR HGB CONC 29.7 g/dl (32.0-36.5); MEAN CORPUSCULAR VOLUME 75.8 fl (80.0-96.0); MONO # 0.5 10^3/uL (0.0-0.8); MONO % 9.8 % (2.0-8.0); NEUTROPHILS # 3.2 10^3/uL (1.5-8.5); NEUTROPHILS % 60.8 % (36.0-66.0); PLATELET COUNT, AUTOMATED 339 10^3/uL (150-450); RED BLOOD COUNT 4.54 10^6/uL (4.00-5.40); WHITE BLOOD COUNT 5.2 10^3/uL (4.0-10.0)
[2024-03-09 18:42] LABS: HEMOGLOBIN A1c 5.8 % (4.0-6.0)
[2024-03-09 18:56] LABS: THYROID STIMULATING HORMONE 1.235 uIU/ML (0.55-4.78)
[2024-03-09 19:00] LABS: TOTAL 25(OH) VITAMIN D 25.2 NG/ML (20.0-100.0)
[2024-03-09 19:01] LABS: IRON (FE) 24 UG/DL (50-170)
[2024-03-09 19:03] LABS: TOTAL IRON BINDING CAPACITY 399 UG/DL (250-425)
[2024-03-09 19:04] LABS: ALKALINE PHOSPHATASE 142 U/L (35-104); BLOOD UREA NITROGEN 12 MG/DL (9-23); CALCIUM LEVEL 8.8 MG/DL (8.5-10.1); CARBON DIOXIDE LEVEL 23 MMOL/L (20-31); CHLORIDE LEVEL 108 MMOL/L (98-107); CHOLESTEROL LEVEL 158 MG/DL (<200); CHOLESTEROL RISK RATIO 3.64 (<5); CREATININE FOR GFR 0.99 MG/DL (0.55-1.30); GLOMERULAR FILTRATION RATE > 60.0 (>58); GLUCOSE, FASTING 87 MG/DL (60-100); HDL CHOLESTEROL 43.4 MG/DL (>40); LDL CHOLESTEROL 71.4 MG/DL (<100); NON-HDL-C 114.6 MG/DL; POTASSIUM SERUM 4.2 MMOL/L (3.5-5.1); SODIUM LEVEL 142 MMOL/L (136-145); TRIGLYCERIDES LEVEL 216 MG/DL (<150)
== END ==
LOC: M LAB REF 16:24
PROVIDERS: ATTEND Pediatrics
DX: R73.03 Prediabetes (principal); I10 Essential (primary) hypertension; E78.5 Hyperlipidemia, unspecified; R74.8 Abnormal levels of other serum enzymes; D64.9 Anemia, unspecified

== ENCOUNTER → 2024-03-25 | Outpatient (REF) | LOC: M PLAIMG 09:08 | PROVIDERS: ATTEND Internal Medicine | DX: M47.817 Spondylosis without myelopathy or radiculopathy, lumbosacral region (principal) ==

== ENCOUNTER 2024-11-29 09:25 | Day surgery (SDC) | payer OTHER ==
[~2024-11-29] VITALS: Ht 157.5 cm; Wt 115.8 kg
[~2024-11-29 09:25] MED LIST changes: -IBUP-1022 PO; +IBUP200C29 PO; +IBUP600T42 PO; +LIDOCAINE 2% 100 MG/5 ML SDV (FOR ANES.) As Ordered ONE; -PROZ20CA11 PO; +PROZ20CA12 PO
[2024-11-29 09:58] VITALS: TEMP 97.5
[2024-11-29 10:17] VITALS: BP 127/75; O2SAT 98
== END 2024-11-29 10:27 | disposition home or self-care (01) ==
LOC: M OPP 09:25
PROVIDERS: ATTEND Internal Medicine Gastroenterology
DX: R13.10 Dysphagia, unspecified (principal); G47.30 Sleep apnea, unspecified; Z88.1 Allergy status to other antibiotic agents; Z88.2 Allergy status to sulfonamides; Z88.8 Allergy status to other drugs, medicaments and biological substances; Z79.899 Other long term (current) drug therapy
CPT/HCPCS: 43249; J3010

== ENCOUNTER → 2025-01-21 | Outpatient (REF) | payer OTHER ==
[~2025-01-21] MED LIST changes: -DIPH50CA PO; +DIPH50CA31 PO; -LIDOCAINE 2% 100 MG/5 ML SDV (FOR ANES.) As Ordered ONE
[2025-01-21 18:13] LABS: ALT/SGPT 16 U/L (7.0-40); AST/SGOT 15 U/L (<34); CALCIUM LEVEL 8.4 MG/DL (8.5-10.1); CARBON DIOXIDE LEVEL 23 MMOL/L (20-31); CHLORIDE LEVEL 105 MMOL/L (98-107); CHOLESTEROL LEVEL 161 MG/DL (<200); CHOLESTEROL RISK RATIO 3.16 (<5); CREATININE FOR GFR 0.80 MG/DL (0.55-1.30); GLOMERULAR FILTRATION RATE > 90.0 (>58); LDL CHOLESTEROL 83.0 MG/DL (<100); NON-HDL-C 110.2 MG/DL; POTASSIUM SERUM 3.8 MMOL/L (3.5-5.1); SODIUM LEVEL 139 MMOL/L (136-145); TRIGLYCERIDES LEVEL 136 MG/DL (<150)
[2025-01-21 18:28] LABS: BASO # 0.0 10^3/uL (0.0-0.2); BASO % 0.2 % (0.0-1.0); EOS # 0.1 10^3/uL (0.0-0.5); EOS % 1.5 % (0.0-3.0); LYMPH # 1.6 10^3/uL (1.5-5.0); LYMPH % 30.4 % (24.0-44.0); MONO # 0.4 10^3/uL (0.0-0.8); MONO % 6.8 % (2.0-8.0); NEUTROPHILS # 3.3 10^3/uL (1.5-8.5); NEUTROPHILS % 60.9 % (36.0-66.0); PLATELET COUNT, AUTOMATED 360 10^3/uL (150-450)
[2025-01-21 19:14] LABS: ESTIMATED AVERAGE GLUCOSE 120.0 MG/DL (60-110)
== END ==
LOC: M LAB REF 17:23
PROVIDERS: ATTEND Physician Assistant
DX: Z86.2 Personal history of diseases of the blood and blood-forming organs and certain disorders involving the immune mechanism (principal); R73.03 Prediabetes; E78.5 Hyperlipidemia, unspecified; E78.2 Mixed hyperlipidemia

== ENCOUNTER → 2025-03-09 | Outpatient (CLI) | payer OTHER ==
[~2025-03-09] MED LIST changes: -PROZ20CA12 PO; +PROZ20CA25 PO
== END ==
LOC: M WHC 10:08
PROVIDERS: ATTEND Nurse Practitioner Family
DX: Z12.31 Encounter for screening mammogram for malignant neoplasm of breast (principal)